=== PATIENT | female | born 1985 | race Two or more races ===

== ENCOUNTER 2016-06-06 09:54 | Emergency (ER) | payer BC, MEDICAID ==
[2016-06-06 10:09] VITALS: BP 130/74
--- NOTE | 2016-06-06 10:18 | ER Document Report ---
ED Medical Screen (RME) - General Chief Complaint: Neck Problem Stated Complaint: SIDE PAIN Mode of Arrival: Ambulatory Information source: Patient Notes: 30 y/o F presents c/o left sided neck pain since this morning and intermittently persistent chronic ankle pain. Denies fever or sob. I have greeted and performed a rapid initial assessment of this patient. A comprehensive ED assessment and evaluation of the patient, analysis of test results and completion of the medical decision making process will be conducted by additional ED providers. TRAVEL OUTSIDE OF THE [place] IN LAST 30 DAYS: No - Related Data Allergies/Adverse Reactions: No Known Allergies Allergy (Verified 06/06/16 10:08) Past Medical History - Social History Frequency of alcohol use: None Drug Abuse: None Renal/ Medical History: Denies: Hx Peritoneal Dialysis Past Surgical History: Reports: Hx Section Physical Exam - Vital signs Vitals: Temp Pulse Resp BP Pulse Ox 98.1 F 82 18 130/74 H 97 06/06/16 10:05 06/06/16 10:05 06/06/16 10:05 06/06/16 10:05 06/06/16 10:05 - General General appearance: Appears well, Alert In distress: None Course - Vital Signs Vital signs: Temp Pulse Resp BP Pulse Ox 98.1 F 82 18 130/74 H 97 06/06/16 10:05 06/06/16 10:05 06/06/16 10:05 06/06/16 10:05 06/06/16 10:05
--- NOTE | 2016-06-06 11:31 | ER Document Report ---
ED Neck/Back Problem - General Chief Complaint: Neck Problem Stated Complaint: SIDE PAIN Time seen by provider: 11:26 Mode of Arrival: Ambulatory Information source: Patient Notes: 30-year-old female presents to ED for a pulling aching pain to the left side of her neck which started 6 days ago when she woke up. She states it is intermittent and gets worse and better at times. She also has a chronic knee and ankle problem. She does not have a primary doctor but she is sent up a first patient appointment with [facility] [place] on Tuesday TRAVEL OUTSIDE OF THE [place] IN LAST 30 DAYS: No - HPI Patient complains to provider of: Pain, Neck - Left Onset: Other - 6 days ago when she woke up after laying on that side Where: Home Onset: Gradual Timing: Waxing and waning Quality of pain: Achy, Throbbing, Other - Pulling Severity: Moderate Pain Level: 3 Context: Other - Turning head Recent injury: No Associated symptoms: Other - Neck pain for 6 days. denies: Incontinence, Motor loss, Numbness/tingling, Radiation to arm, Radiation to chest, Radiation to leg , Unable to urinate, Lower back pain, Upper back pain Exacerbated by: Movement of neck Relieved by: Nothing Similar symptoms previously: No Recently seen / treated by doctor: No - Related Data Allergies/Adverse Reactions: No Known Allergies Allergy (Verified 06/06/16 10:08) Past Medical History - General Information source: Patient - Social History Smoking Status: Never Smoker Cigarette use (# per day): No Chew tobacco use (# tins/day): No Smoking Education Provided: No Frequency of alcohol use: None Drug Abuse: None Occupation: none Lives with: Family Family History: CVA, DM, Hyperlipidemia, Hypertension, Malignancy Patient has suicidal ideation: No Patient has homicidal ideation: No - Past Medical History Cardiac Medical History: Reports: None Pulmonary Medical History: Reports: None EENT Medical History: Reports: None Neurological Medical History: Reports: None Endocrine Medical History: Reports: None Renal/ Medical History: Reports: None Malignancy Medical History: Reports: None GI Medical History: Reports: None Musculoskeltal Medical History: Reports None Skin Medical History: Reports None Psychiatric Medical History: Reports: None Traumatic Medical History: Reports: None Infectious Medical History: Reports: None Past Surgical History: Reports: Hx Section Review of Systems - Review of Systems Constitutional: No symptoms reported EENT: No symptoms reported Cardiovascular: No symptoms reported Respiratory: No symptoms reported Gastrointestinal: No symptoms reported Genitourinary: No symptoms reported Female Genitourinary: No symptoms reported Musculoskeletal: Muscle pain - Left side of neck, Neck pain - left side of neck Skin: No symptoms reported Hematologic/Lymphatic: No symptoms reported Neurological/Psychological: No symptoms reported -: Yes All other systems reviewed and negative Physical Exam - Vital signs Vitals: Temp Pulse Resp BP Pulse Ox 98.1 F 82 18 130/74 H 97 06/06/16 10:05 06/06/16 10:05 06/06/16 10:05 06/06/16 10:05 06/06/16 10:05 Interpretation: Normal - General General appearance: Appears well, Alert - HEENT Head: Normocephalic, Atraumatic Eyes: Normal Pupils: PERRL - Respiratory Respiratory status: No respiratory distress Chest status: Nontender Breath sounds: Normal Chest palpation: Normal - Cardiovascular Rhythm: Regular Heart sounds: Normal auscultation Murmur: No - Abdominal Inspection: Normal Distension: No distension Bowel sounds: Normal Tenderness: Nontender Organomegaly: No organomegaly - Back Back: Normal, Tender - Left neck. No: Deformity/step-off, CVA tenderness, Vertebra tenderness, Scars, Scoliosis, Wounds, Other - Extremities General upper extremity: Normal inspection, Nontender, Normal color, Normal ROM , Normal temperature General lower extremity: Normal inspection, Nontender, Normal color, Normal ROM , Normal temperature, Normal weight bearing. No: Claudia's sign - Neurological Neuro grossly intact: Yes Cognition: Normal Orientation: AAOx4 Jany Coma Scale Eye Opening: Spontaneous [place] Coma Scale Verbal: Oriented [place] Coma Scale Motor: Obeys Commands [place] Coma Scale Total: 15 Speech: Normal Motor strength normal: LUE, RUE, LLE, RLE Sensory: Normal - Psychological Associated symptoms: Normal affect, Normal mood - Skin Skin Temperature: Warm Skin Moisture: Dry Skin Color: Normal Course - Re-evaluation Re-evalutation: 06/06/16 11:37 Assessment consistent with a muscle pain will put patient on muscle relaxers and have her continue to take her ibuprofen. Patient to use ice and heat as instructed and to follow-up with [facility] [place] as scheduled - Vital Signs Vital signs: Temp Pulse Resp BP Pulse Ox 98.1 F 82 18 130/74 H 97 06/06/16 10:05 06/06/16 10:05 06/06/16 10:05 06/06/16 10:05 06/06/16 10:05 Discharge - Discharge Clinical Impression: Neck pain on left side Condition: Stable Disposition: HOME, SELF-CARE Additional Instructions: MUSCLE STRAIN: You have strained a muscle -- torn the fibers within the muscle. This often occurs with strenuous exertion, or during an injury that suddenly stretches the muscle. The seriousness of a strain varies. Some strains heal within days, others cause problems for months. X-rays cannot show a muscle strain. X-rays are taken only if symptoms suggest that a fracture could be present. The usual treatment of a muscle strain is rest and ice packs. Sometimes, a sling, splint, or crutches may be necessary to rest the muscle. The muscle can be used again once pain subsides. Severe strains require a special exercise and stretching program to prevent permanent stiffness and disability. Your doctor will advise you if this will be necessary. Call the doctor immediately if pain or swelling becomes severe, or if numbness or discoloration develop. ICE PACKS: Apply ice packs frequently against the painful area. Many different schedules are recommended, such as "20 minutes on, 20 minutes off" or "one hour ice, two hours rest." If you need to work, you may need to go longer between ice treatments. You should plan to have the area ice packed AT LEAST one fourth of the time. The ice should be applied over the wrap, tape, or splint, or over a layer of cloth -- not directly against the skin. Some ice bags have a built-in cloth and can be put directly on the skin. WARM PACKS: After approximately two days, apply gentle heat (such as a heating pad or hot water bottle) for about 20 to 30 minutes about every two hours -- at least four times daily. Warmth and elevation will help you make a more rapid recovery , and will ease the pain considerably. Do not use HOT heat, and never apply heat for longer than 30 minutes. The continuous heat can invisibly damage skin and muscles -- even when no burn is seen on the surface. Damaged muscles can make you MORE sore. MUSCLE RELAXERS: Muscle relaxing medications are usually prescribed for acute muscle spasm or injury to the neck and back. They are often combined with antiinflammatory pain medication for increased relief. You may stop the muscle relaxer when the pain and stiffness have improved. Start the medication again if spasms recur. Muscle relaxers may cause drowsiness, especially with the first dose. Do not operate machinery or drive while under the effects of the medication. Most muscle relaxers last up to 24 hours. Do not combine the medication with alcohol. Ibuprofen Ibuprofen is an excellent, safe drug for pain control. In addition, it has potent antiinflammatory effects which are beneficial, especially in the treatment of injuries, arthritis, or tendonitis. It's best to take ibuprofen with food. Persons with ulcer disease or allergy to aspirin should notify their physician of this before taking ibuprofen. Take the medication exactly as prescribed. Don't take additional doses unless instructed to do so by your doctor. If you develop wheezing, shortness of breath, hives, faintness, stomach pain, vomiting, or dark black stools, return for re-evaluation at once. FOLLOW-UP CARE: If you have been referred to a physician for follow-up care, call the physician s office for an appointment as you were instructed or within the next two days. If you experience worsening or a significant change in your symptoms, notify the physician immediately or return to the Emergency Department at any time for re-evaluation. [facility] appointment with [facility] on Tuesday as you stated scheduled. Follow-up with the ER if pain increases. Prescriptions: Cyclobenzaprine HCl [Flexeril 10 mg Tablet] 10 mg PO TIDP PRN #15 tab PRN Reason: Forms: Elevated Blood Pressure Referrals: [facility] [Provider Group] - 06/11/16
== END 2016-06-06 11:43 | disposition home or self-care (01) ==
LOC: ER 09:54
DX: M54.2 Cervicalgia (principal)
CPT/HCPCS: 99283

== ENCOUNTER 2017-05-25 10:08 | Emergency (ER) | payer MEDICAID ==
--- NOTE | 2017-05-25 10:56 | ER Document Report ---
ED GI/ - General Chief Complaint: Vaginal Bleeding Stated Complaint: VAGINAL BLEEDING Time Seen by Provider: 05/25/17 10:44 Mode of Arrival: Ambulatory Information source: Patient, [facility] Records Notes: This 31-year-old female patient comes emergency room for abnormal vaginal bleeding for about 6 weeks. She was on the Depo shot until the end of March. She is not sure when her last Depo shot was. She was scheduled for bilateral tubal ligation on 2016 but canceled due to a job interview. She developed her last menstrual period about 04/15/2017. It lasted approximately 3 weeks, went away for 4-5 days , and then returned. She states the bleeding is like her normal periods the entire time, only it has lasted much longer than her normal 4-5 day period. There are no clots noted. She states she has been feeling dizzy and lightheaded at times. TRAVEL OUTSIDE OF THE [place] IN LAST 30 DAYS: No - Related Data Allergies/Adverse Reactions: No Known Allergies Allergy (Verified 05/25/17 10:14) Past Medical History - General Information source: Patient, [facility] Records - Social History Smoking Status: Never Smoker Cigarette use (# per day): No Chew tobacco use (# tins/day): No Smoking Education Provided: No Frequency of alcohol use: None Drug Abuse: None Lives with: Family Family History: CVA, DM, Hyperlipidemia, Hypertension, Malignancy Patient has suicidal ideation: No Patient has homicidal ideation: No - Medical History Medical History: Negative Renal/ Medical History: Reports: Other - 9 years ago. for twins 3 years ago. Past Surgical History: Reports: Hx Section - for twins about 3 years ago. - Immunizations Hx Diphtheria, Pertussis, Tetanus Vaccination: Yes Review of Systems - Review of Systems Constitutional: No symptoms reported EENT: No symptoms reported Cardiovascular: Dizziness, Lightheaded Respiratory: No symptoms reported Gastrointestinal: No symptoms reported Genitourinary: No symptoms reported Female Genitourinary: See HPI Musculoskeletal: No symptoms reported Skin: No symptoms reported Hematologic/Lymphatic: No symptoms reported Neurological/Psychological: No symptoms reported Physical Exam - Vital signs Vitals: Temp Pulse Resp BP Pulse Ox 98.2 F 72 16 117/65 99 05/25/17 10:16 05/25/17 10:16 05/25/17 10:16 05/25/17 10:16 05/25/17 10:16 Interpretation: Normal - General General appearance: Appears well, Alert In distress: None - HEENT Head: Normocephalic, Atraumatic Eyes: Normal Pupils: PERRL Neck: Supple - Respiratory Respiratory status: No respiratory distress Breath sounds: Normal - Cardiovascular Rhythm: Regular Heart sounds: Normal auscultation Murmur: No - Abdominal Inspection: Striae Bowel sounds: Normal Tenderness: Nontender - Back Back: Normal - Extremities General upper extremity: Normal inspection General lower extremity: Normal inspection - Neurological Neuro grossly intact: Yes - Psychological Associated symptoms: Normal affect, Normal mood - Skin Skin Temperature: Warm Skin Moisture: Dry Skin Color: Normal Course - Vital Signs Vital signs: Temp Pulse Resp BP Pulse Ox 98.6 F 80 16 128/72 H 100 05/25/17 12:48 05/25/17 12:48 05/25/17 10:16 05/25/17 12:48 05/25/17 12:48 - Laboratory Result Diagrams: 05/25/17 11:19 05/25/17 11:19 Laboratory results interpreted by me: 05/25/17 11:19 Hgb 11.8 L MCH 26.5 L - Diagnostic Test Radiology reviewed: Image reviewed, Reports reviewed - Transvaginal ultrasound suggests subcentimeter fibroids along the ventral uterine body. Discharge - Discharge Clinical Impression: Dysfunctional uterine bleeding Uterine fibroid Qualifiers: Uterine leiomyoma location: unspecified location Qualified Code(s): D25.9 - Leiomyoma of uterus, unspecified Condition: Stable Disposition: HOME, SELF-CARE Additional Instructions: Dysfunctional Uterine Bleeding: You're having an abnormal pattern of bleeding from the uterus. We call this dysfunctional uterine bleeding. It is most often caused by a hormone imbalance. Most often this is temporary and no cause is found. There's no evidence of , tumors, or infection as a cause. Dysfunctional uterine bleeding is especially common at times when the normal menstrual cycle is disturbed -- whether by recent , use of control pills or hormones, or impending menopause. Some medical problems lead to dysfunctional bleeding, such as obesity or being very underweight, stress, or thyroid problems. In many cases, the menstrual cycle will return to normal without any treatment. Where the bleeding is significant, high-dose estrogen will usually stop the bleeding within a day of two. A cycle or two of hormones ( control pills) can help restore the uterus to normal. In some patients where bleeding is severe or resistant to treatment, a D&C is required. A endometrial biopsy (a sample of the inside of the uterus) may be recommended for some older women. This would be done by a gynecology specialist. Treatment for anemia may be required if bleeding is severe. You should rest and avoid intercourse until the bleeding is controlled. Call the doctor or return for re-examination if you feel faint, have increasing pain, or have a major increase in the amount of bleeding. Fibroids: Fibroids are benign growths in the uterus. They can cause enlargement of the uterus, irregular bleeding, sever bleeding with periods, and abdominal pain. Anemia may result if periods are heavy. Fibroids tend to grow until menopause, then slowly shrink. If fibroids cause severe symptoms, they can be treated surgically. Call or return if vaginal bleeding or pain becomes severe. //////////////////////////////////////////////////////////////////////////////// //////////////////////////////////////////////////////////////////////////////// ////////////////// Your dysfunctional uterine bleeding is probably the result of the small fibroids that were seen on ultrasound. Take the medication as prescribed to control your bleeding at this time. Call [facility] for a follow-up appointment in the next 7-10 days. RETURN TO THE EMERGENCY ROOM IF ANY NEW OR WORSENING SYMPTOMS. Prescriptions: Medroxyprogesterone Acet [Provera 10 Mg Tablet] 10 mg PO DAILY #10 tablet Referrals: [facility] [Provider Group] - Follow up in 1 week (Call for an appointment in the next 7-10 days)
[2017-05-25 11:36] LABS: ABSOLUTE LYMPHOCYTES (AUTO) 1.6 10^3/uL (0.5-4.7); ABSOLUTE MONOCYTES (AUTO) 0.3 10^3/uL (0.1-1.4); ABSOLUTE NEUT (AUTO) 2.9 10^3/uL (1.7-8.2); BASOPHILS % (AUTO) 0.6 % (0-2); EOSINOPHILS % (AUTO) 0.7 % (0-6); HEMATOCRIT 36.4 % (36.0-47.0); HEMOGLOBIN 11.8 g/dL (12.0-15.5); LYMPHOCYTES % (AUTO) 33.7 % (13-45); MEAN CORPUSCULAR HEMOGLOBIN 26.5 pg (27.0-33.4); MEAN CORPUSCULAR HGB CONC 32.4 g/dL (32.0-36.0); MEAN CORPUSCULAR VOLUME 82 fl (80-97); MONOCYTES % (AUTO) 6.4 % (3-13); PLATELET COUNT 191 10^3/uL (150-450); RED BLOOD COUNT 4.45 10^6/uL (3.72-5.28); RED CELL DISTRIBUTION WIDTH 13.8 % (11.5-14.0); SEGMENTED NEUTROPHILS % (AUTO) 58.6 % (42-78); TOTAL CELLS COUNTED % (AUTO) 100 %; WHITE BLOOD COUNT 4.9 10^3/uL (4.0-10.5)
[2017-05-25 12:00] LABS: ALANINE AMINOTRANSFERASE 30 U/L (9-52); ALBUMIN 4.5 g/dL (3.5-5.0); ALKALINE PHOSPHATASE 73 U/L (38-126); ANION GAP 11 (5-19); ASPARTATE AMINO TRANSFERASE 19 U/L (14-36); BILIRUBIN,DIRECT 0.2 mg/dL (0.0-0.4); BILIRUBIN,TOTAL 0.3 mg/dL (0.2-1.3); BLOOD UREA NITROGEN 14 mg/dL (7-20); CALCIUM 10.2 mg/dL (8.4-10.2); CARBON DIOXIDE 28 mmol/L (22-30); CHLORIDE 104 mmol/L (98-107); GLUCOSE 87 mg/dL (75-110); POTASSIUM 4.4 mmol/L (3.6-5.0); TOTAL PROTEIN 7.5 g/dL (6.3-8.2)
--- NOTE | 2017-05-25 12:10 | RADIOLOGY REPORT (SQ) ---
EXAM DESCRIPTION: U/S NON-OB PELVIS TV W/O DOP COMPLETED DATE/TIME: 05/25/2017 11:50 am REASON FOR STUDY: Dysfunctional uterine bleeding COMPARISON: None. TECHNIQUE: Dynamic and static grayscale images acquired of the pelvis via transvaginal approach and recorded on PACS. Additional selected color Doppler and spectral images recorded. LIMITATIONS: Left ovary not visualized due to adnexal bowel gas FINDINGS: UTERUS: Contour normal. Heterogeneous echotexture, suspect several small subcentimeter fi broids along the ventral aspect of the uterine body. Uterus is 8.4 x 5.7 x 5.1 cm in size. ENDOMETRIAL STRIPE: No focal or generalized thickening. No masses. 11 mm in thickness. CERVIX: No nabothian cysts. RIGHT OVARY: No abnormal masses. Right ovary 2.8 x 2.6 x 2.1 cm in size. RIGHT OVARY DOPPLER: Normal arterial vascular flow without evidence for torsion. LEFT OVARY: Not seen due to adnexal bowel gas LEFT OVARY DOPPLER: Not performed FREE FLUID: None noted. OTHER: No other significant finding. IMPRESSION: Left ovary not visualized Heterogeneous myometrium along the ventral uterine body likely related to subcentimeter fibroids. Endometrial stripe 11 mm thickness, within normal range TECHNICAL DOCUMENTATION: JOB ID: [id number] [employer]- All Rights Reserved
[2017-05-25 12:49] VITALS: BP 128/72
== END 2017-05-25 12:55 | disposition home or self-care (01) ==
LOC: ER 10:08
DX: D25.9 Leiomyoma of uterus, unspecified (principal); N93.8 Other specified abnormal uterine and vaginal bleeding; R42 Dizziness and giddiness
CPT/HCPCS: 36415; 76830; 80053; 84702; 85025; 99284

== ENCOUNTER 2019-09-23 17:09 | Emergency (ER) | payer MEDICAID ==
--- NOTE | 2019-09-23 17:17 | ER Document Report ---
ED Medical Screen (RME) - General Chief Complaint: Vaginal Bleeding Stated Complaint: VAGINAL BLEEDING Time Seen by Provider: 09/23/19 17:11 Primary Care Provider: TRISTAN GAN FNP [Primary Care Provider] - Follow up as needed Mode of Arrival: Ambulatory Information source: Patient Notes: 33-year-old female with history of fibroids presents emergency department with complaints of vaginal bleeding. Reports her last menses was approximately 1-1/2 weeks ago. She reports yesterday she started having some vaginal bleeding with cramping. She reports it stopped overnight. She reports she started bleeding heavily today with clots and more cramps. She did not take anything for the pain. She declines pain medication at this time. She has gone through 2 pads today. Denies fever vomiting diarrhea. Denies trauma. Denies injury. Patient reports she was evaluated and treated for fibroids last year by [facility]. I have greeted and performed a rapid initial assessment of this patient. A comprehensive ED assessment and evaluation of the patient, analysis of test results and completion of the medical decision making process will be conducted by additional ED providers. TRAVEL OUTSIDE OF THE [place] IN LAST 30 DAYS: No - Related Data Allergies/Adverse Reactions: No Known Allergies Allergy (Verified 09/23/19 17:11) Past Medical History - Past Medical History Cardiac Medical History: Denies: Hx Heart Attack, Hx Hypertension Pulmonary Medical History: Denies: Hx Asthma, Hx Bronchitis, Hx COPD, Hx Pneumonia Neurological Medical History: Denies: Hx Seizures Renal/ Medical History: Denies: Hx Peritoneal Dialysis Musculoskeltal Medical History: Denies Hx Arthritis Past Surgical History: Reports: Hx Section - for twins about 3 years ago. - Immunizations Hx Diphtheria, Pertussis, Tetanus Vaccination: Yes Doctor's Discharge - Discharge Referrals: TRISTAN GAN FNP [Primary Care Provider] - Follow up as needed
--- NOTE | 2019-09-23 17:21 | ER Document Report ---
ED GI/ - General Chief Complaint: Vaginal Bleeding Stated Complaint: VAGINAL BLEEDING Time Seen by Provider: 09/23/19 17:11 Primary Care Provider: TRISTAN GAN FNP [NO LOCAL MD] - Follow up as needed Mode of Arrival: Ambulatory Information source: Patient Notes: 33-year-old female past medical history significant for uterine fibroids presents to the emergency room complaining of pelvic cramping and vaginal bleeding that started yesterday. States the cramping lasted about a half an hour the bleeding has been persistent. States today bleeding got worse started passing clots earlier.. Pain is intermittent and describes it more as a throbbing sensation denies any vaginal trauma or injury. Denies urinary symptoms. Denies fevers. TRAVEL OUTSIDE OF THE [place] IN LAST 30 DAYS: No - Related Data Allergies/Adverse Reactions: No Known Allergies Allergy (Verified 09/23/19 17:11) Past Medical History - General Information source: Patient - Social History Smoking Status: Never Smoker Chew tobacco use (# tins/day): No Frequency of alcohol use: None Drug Abuse: None Lives with: Family Family History: CVA, DM, Hyperlipidemia, Hypertension, Malignancy Patient has homicidal ideation: No - Past Medical History Cardiac Medical History: Denies: Hx Heart Attack, Hx Hypertension Pulmonary Medical History: Denies: Hx Asthma, Hx Bronchitis, Hx COPD, Hx Pneumonia Neurological Medical History: Denies: Hx Seizures Renal/ Medical History: Denies: Hx Peritoneal Dialysis Musculoskeletal Medical History: Denies Hx Arthritis Past Surgical History: Reports: Hx Section - for twins about 3 years ago. - Immunizations Hx Diphtheria, Pertussis, Tetanus Vaccination: Yes Review of Systems - Review of Systems Constitutional: No symptoms reported Cardiovascular: No symptoms reported Respiratory: No symptoms reported Gastrointestinal: denies: Nausea, Vomiting Female Genitourinary: Vaginal bleeding, Other - Pelvic pain Skin: No symptoms reported -: Yes All other systems reviewed and negative Physical Exam - Vital signs Vitals: Temp 98.3 F 09/23/19 17:11 - General General appearance: Appears well, Alert In distress: Mild - HEENT Head: Normocephalic, Atraumatic Eyes: Normal Pupils: PERRL - Respiratory Respiratory status: No respiratory distress Chest status: Nontender Breath sounds: Normal Chest palpation: Normal - Abdominal Inspection: Normal Distension: No distension Bowel sounds: Normal Tenderness: Tender - Mild tenderness noted over the lower pelvic region bilaterally. No: Guarding, Rebound Organomegaly: No organomegaly - Genitourinary External exam: Normal Speculum exam: Cervix closed. No: Products of conception Vaginal bleeding: Mild Bimanuel exam: Normal. No: Cervical motion tender, Adnexal mass, Adnexal tenderness Notes: Cork Grinder NIDIA Daigle present - Back Back: Normal, Nontender. No: CVA tenderness - Neurological Neuro grossly intact: Yes Cognition: Normal Orientation: AAOx4 [place] Coma Scale Eye Opening: Spontaneous [place] Coma Scale Verbal: Oriented Jany Coma Scale Motor: Obeys Commands [place] Coma Scale Total: 15 Speech: Normal Motor strength normal: LUE, RUE, LLE, RLE Sensory: Normal - Skin Skin Temperature: Warm Skin Moisture: Dry Skin Color: Normal Course - Re-evaluation Re-evalutation: 09/23/19 21:18 Patient is resting comfortably minimal bleeding noted on pelvic exam. Discussed with patient possibility of either a threatened or complete miscarriage. With her quant of only less than 19 and new intrauterine noted on ultrasound, we cannot rule out either condition. She was counseled on need to follow-up with her synthetic gem press operator in 48 hours for repeat hCG. If unable to secure an appointment with her AUTOMOTIVE WORKER FOREMAN she is return to the emergency room in 48 hours for repeat hCG. She was given strict return to the emergency room guidelines including but not limited to worsening bleeding, worsening pain or any other new symptoms. She was counseled to return to emergency room for any new or worsening symptoms. All questions were answered. Patient verbalized understanding agrees with plan of care. 09/23/19 21:25 09/23/19 21:25 - Vital Signs Vital signs: Temp Pulse Resp BP Pulse Ox 98.2 F 89 16 147/68 H 99 09/23/19 21:53 09/23/19 21:53 09/23/19 21:53 09/23/19 21:53 09/23/19 21:53 - Laboratory Result Diagrams: 09/23/19 17:31 09/23/19 17:31 Laboratory results interpreted by me: 09/23/19 09/23/19 09/23/19 17:31 17:31 17:31 Hgb 11.9 L Hct 35.3 L Serum HCG, Qual POSITIVE H Beta HCG, Quant Urine Blood LARGE H 09/23/19 17:31 Hgb Hct Serum HCG, Qual Beta HCG, Quant 18.45 H Urine Blood Discharge - Discharge Clinical Impression: Threatened Condition: Stable Disposition: HOME, SELF-CARE Instructions: Threatened Miscarriage ([facility]) Additional Instructions: Tylenol as needed for pain. Follow-up with your synthetic gem press operator for repeat hCG in 48 hours. If unable to get an appointment with your AUTOMOTIVE WORKER FOREMAN return to the emergency room for repeat hCG return to the emergency room for any new or worsening symptoms. Referrals: TRISTAN GAN FNP [NO LOCAL MD] - Follow up as needed
[2019-09-23 17:59] LABS: ABSOLUTE LYMPHOCYTES (AUTO) 1.9 10^3/uL (0.5-4.7); ABSOLUTE MONOCYTES (AUTO) 0.5 10^3/uL (0.1-1.4); ABSOLUTE NEUT (AUTO) 2.5 10^3/uL (1.7-8.2); BASOPHILS % (AUTO) 0.7 % (0-2); HEMATOCRIT 35.3 % (36.0-47.0); HEMOGLOBIN 11.9 g/dL (12.0-15.5); MEAN CORPUSCULAR HEMOGLOBIN 28.2 pg (27.0-33.4); MEAN CORPUSCULAR HGB CONC 33.6 g/dL (32.0-36.0); MEAN CORPUSCULAR VOLUME 84 fl (80-97); MONOCYTES % (AUTO) 9.4 % (3-13); PLATELET COUNT 150 10^3/uL (150-450); RED BLOOD COUNT 4.21 10^6/uL (3.72-5.28); RED CELL DISTRIBUTION WIDTH 13.5 % (11.5-14.0); SEGMENTED NEUTROPHILS % (AUTO) 50.9 % (42-78); TOTAL CELLS COUNTED % (AUTO) 100 %; WHITE BLOOD COUNT 4.9 10^3/uL (4.0-10.5)
[2019-09-23 18:04] LABS: APPEARANCE,URINE CLEAR; BILIRUBIN,URINE NEGATIVE (NEGATIVE); COLOR,URINE YELLOW; GLUCOSE, URINE NEGATIVE (NEGATIVE); KETONES,URINE NEGATIVE (NEGATIVE); LEUKOCYTE ESTERASE,URINE NEGATIVE (NEGATIVE); NITRITE,URINE NEGATIVE (NEGATIVE); PROTEIN,URINE NEGATIVE (NEGATIVE); URINE SPECIFIC GRAVITY 1.023; UROBILINOGEN,URINE NEGATIVE mg/dL (<2.0)
[2019-09-23 18:17] LABS: ALBUMIN 4.5 g/dL (3.5-5.0); ALKALINE PHOSPHATASE 51 U/L (38-126); ANION GAP 5 (5-19); ASPARTATE AMINO TRANSFERASE 17 U/L (14-36); BILIRUBIN,TOTAL 0.2 mg/dL (0.2-1.3); BLOOD UREA NITROGEN 15 mg/dL (7-20); CALCIUM 8.9 mg/dL (8.4-10.2); CARBON DIOXIDE 27 mmol/L (22-30); CHLORIDE 105 mmol/L (98-107); GLUCOSE 87 mg/dL (75-110); POTASSIUM 4.2 mmol/L (3.6-5.0); TOTAL PROTEIN 7.5 g/dL (6.3-8.2)
--- NOTE | 2019-09-23 20:26 | RADIOLOGY REPORT (SQ) ---
EXAM DESCRIPTION: US TRANSVAGINAL COMPLETED DATE/TME: 09/23/2019 18:30 CLINICAL HISTORY: 33 years, Female, bleeding COMPARISON: Prior study from 05/25/2017. TECHNIQUE: Axial 2-D grayscale images of the pelvis were obtained. Doppler was utilized. LIMITATIONS: None. FINDINGS: Uterus measures 10.4 x 6.2 x 7.8 cm in size. The endometrium appears diffusely thickened and heterogenous in echogenicity, measuring up to 3.2 cm in thickness. No Doppler flow is noted about this location. No intrauterine is identified. The cervix is closed, measuring 3.3 cm in length. Right ovary measures 3.6 x 1.8 x 1.3 cm in size. It demonstrates normal echogenicity and normal low resistance arterial waveforms. Left ovary measures 4.6 x 4.0 x 4.3 cm in size. It demonstrates normal low resistance arterial waveforms and venous flow. In addition, it contains a hypoechoic lesion measuring 4.3 x 3.7 x 3.6 cm in size, indeterminate on this examination. A small amount of free fluid is noted about the posterior cul-de-sac. IMPRESSION: No intrauterine is identified. Differential considerations include an early IUP, ectopic , or possibly a miscarriage. Recommend continued serial surveillance with beta-hCG levels as well as follow-up pelvic ultrasound in one week to assess for development of an intrauterine . At that time, the indeterminate hypoechoic lesion about the left ovary can be reassessed (which potentially corresponds to a functional cyst). copyright 2010 [employer]- All Rights Reserved
[2019-09-23 21:55] VITALS: BP 147/68
== END 2019-09-23 21:52 | disposition home or self-care (01) ==
LOC: ER 17:09
DX: O20.0 Threatened abortion (principal); R10.9 Unspecified abdominal pain
CPT/HCPCS: 36415; 76817; 80053; 81001; 84702; 84703; 85025; 86900; 86901; 93976; 99284

== ENCOUNTER 2019-12-03 07:19 | Day surgery (SDC) | payer MEDICAID ==
[2019-11-26 11:59] LABS: HEMATOCRIT 38.7 % (36.0-47.0); HEMOGLOBIN 12.9 g/dL (12.0-15.5); MEAN CORPUSCULAR HEMOGLOBIN 27.3 pg (27.0-33.4); MEAN CORPUSCULAR HGB CONC 33.2 g/dL (32.0-36.0); MEAN CORPUSCULAR VOLUME 82 fl (80-97); PLATELET COUNT 147 10^3/uL (150-450); RED BLOOD COUNT 4.72 10^6/uL (3.72-5.28); RED CELL DISTRIBUTION WIDTH 13.6 % (11.5-14.0); WHITE BLOOD COUNT 4.4 10^3/uL (4.0-10.5)
[2019-11-26 12:04] LABS: APPEARANCE,URINE CLEAR; BILIRUBIN,URINE NEGATIVE (NEGATIVE); COLOR,URINE YELLOW; GLUCOSE, URINE NEGATIVE (NEGATIVE); KETONES,URINE NEGATIVE (NEGATIVE); LEUKOCYTE ESTERASE,URINE NEGATIVE (NEGATIVE); NITRITE,URINE NEGATIVE (NEGATIVE); PROTEIN,URINE NEGATIVE (NEGATIVE); URINE SPECIFIC GRAVITY 1.021; UROBILINOGEN,URINE NEGATIVE mg/dL (<2.0)
[2019-11-26 12:18] LABS: ALBUMIN 4.8 g/dL (3.5-5.0); ALKALINE PHOSPHATASE 49 U/L (38-126); ANION GAP 8 (5-19); ASPARTATE AMINO TRANSFERASE 19 U/L (14-36); BILIRUBIN,TOTAL 0.4 mg/dL (0.2-1.3); BLOOD UREA NITROGEN 13 mg/dL (7-20); CARBON DIOXIDE 24 mmol/L (22-30); CHLORIDE 107 mmol/L (98-107); GLUCOSE 96 mg/dL (75-110); POTASSIUM 4.6 mmol/L (3.6-5.0); TOTAL PROTEIN 8.1 g/dL (6.3-8.2)
[~2019-12-03 07:19] MED LIST: CEFAZOLIN 1 GM/D5W RTU 1 GM/50 ML RTUPB IV ONE; CEFAZOLIN 1 GM/D5W RTU 1 GM/50 ML RTUPB IV PRN; DEXAMETHASONE SOD PHOSPHATE INJ 4 MG/1 ML VIAL ONE; FENTANYL CITRATE INJ/PF 100 MCG/2 ML AMPUL ONE; LACTATED RINGERS 1000 ML IV PRN; LIDOCAINE 0.5% INJ-PF (5 MG/ML) 50 ML SDV SUBCUT PRN; MIDAZOLAM 2 MG/2 ML INJ ONE; ONDANSETRON HCL INJ/PF 4 MG/2 ML SDV ONE; PROPOFOL INJ 200 MG/20 ML VIAL IV ONE; RINGERS SOLUTION,LACTATED 1,000 ML IV ONE; SUGAMMADEX SODIUM 200 MG/2 ML SDV IV ONE
[2019-12-03] MEDS ORDERED: BUPIVACAINE HCL 0.25 % INJ/PF (2.5 MG/1 ML) 30 ML VIAL ONE ×2 (07:36→11:04)
[2019-12-03] MEDS ORDERED: FENTANYL CITRATE INJ/PF 100 MCG/2 ML AMPUL IV PRN ×3 (10:15)
[2019-12-03] MEDS ORDERED: MORPHINE SULFATE 10 MG/ML INJ IV PRN (10:15)
[2019-12-03] MEDS ORDERED: PROMETHAZINE HCL INJ 25 MG/1 ML VIAL IV PRN ×2 (10:15)
[2019-12-03] MEDS ORDERED: DIPHENHYDRAMINE HCL 50 MG/ML VIAL IV PRN (10:15)
[2019-12-03] MEDS ORDERED: ONDANSETRON HCL INJ/PF 4 MG/2 ML SDV IV PRN (10:15)
[2019-12-03] MEDS ORDERED: MEPERIDINE HCL/PF INJ 25 MG/1 ML DISP.SYRIN IV PRN (10:15)
--- NOTE | 2019-12-03 11:15 | Operative Report ---
Operative Report DATE OF SURGERY: 12/03/19 PREOPERATIVE DIAGNOSIS: Hypermenorrhea POSTOPERATIVE DIAGNOSIS: Same OPERATION: Robotic assisted total hysterectomy bilateral salpingectomy SURGEON: MIGDALIA MICHAEL ANESTHESIA: GA TISSUE REMOVED OR ALTERED: Uterus and tubes ESTIMATED BLOOD LOSS: Less than 100 cc PROCEDURE: Patient placed in a dorsal lithotomy position prepped draped in sterile fashion. Speculum placed cervix visualized grasped single-tooth tenaculum sounded to a depth of 8 cm. The uterine ablator was placed per protocol. Gutters were removed and attention turned to the abdomen. Supraumbilical incision was made trocar was introduced as flexion of the abdomen visualization of the pelvis. There is appear to be normal with some adhesions from the anterior bert wall to the lower uterine segment. These appear to be normal. Second puncture was made lateral to the first on the left and a 5 trocar was introduced third lateral on the right and a 5 was introduced and an accessory port above the supra iliac crest on the right. Robot was docked in usual fashion. The monopolar bipolar cautery the left tube was divided along the mesosalpinx. The leg was then divided down the uterus to the ascending branch of the uterine artery on the left. Procedure to be on the right. Bladder flap was created with sharp dissection. Uterus and tubes were then removed by circumscribing the lower uterine segment. Uterus and tubes were removed through the vagina. Sutured and closed running suture of 0 Vicryl. Pelvis irrigated and hemostasis was noted. The robot was then undocked. The suprapubic and accessory port were closed using 0 Vicryl for the fascia 4 oh subcu. 2 puncture wounds were closed using Endo male. Tissue remain clear without procedure taken recovery room good condition.
[2019-12-03] MEDS: FENTANYL CITRATE INJ/PF 100 MCG/2 ML AMPUL ONE ×3 (11:42→11:52)
[2019-12-03] MEDS ORDERED: OXYCODONE-ACETAMINOPHEN 5-325 MG TABLET PO PRN (12:05)
[2019-12-03] MEDS ORDERED: ONDANSETRON HCL 8 MG TABLET PO PRN (12:05)
[2019-12-03] MEDS ORDERED: IBUPROFEN 800 MG TABLET ONE (12:38)
[2019-12-03] MEDS ORDERED: OXYCODONE-ACETAMINOPHEN 5-325 MG TABLET ONE (12:38)
[2019-12-03] MEDS ORDERED: IBUPROFEN 800 MG TABLET PO SCH (14:00)
[2019-12-03] MEDS ORDERED: SCOPOLAMINE HYDROBROMIDE 1.5 MG PATCH.TD72 ONE (14:06)
[2019-12-03] MEDS ORDERED: NEOSTIGMINE METHYLSULFATE 10 MG/10 ML VIAL ONE (14:57)
[2019-12-03] MEDS ORDERED: GLYCOPYRROLATE 1 MG/5 ML VIAL ONE (14:57)
[2019-12-03] MEDS ORDERED: ROCURONIUM BROMIDE INJ 50 MG/5 ML VIAL IV ONE (14:57)
[2019-12-03] MEDS ORDERED: SCOPOLAMINE HYDROBROMIDE 1.5 MG PATCH.TD72 TD ONE (16:00)
[2019-12-03 21:44] VITALS: BP 114/66
== END 2019-12-03 15:10 | disposition home or self-care (01) ==
LOC: OROUT 07:19
PROVIDERS: ATTEND Obstetrics & Gynecology Gynecology
DX: N92.0 Excessive and frequent menstruation with regular cycle (principal); Z03.818 Encounter for observation for suspected exposure to other biological agents ruled out
CPT/HCPCS: 58573; S2900; 36415; 64450; 76942; 80053; 81001; 840; 84703; 85027; 86850; 86900; 86901; 87635; 88307; C1758; C9803; J0690; J1100; J2250; J2405; J2704; J2710; J3010; J3490